=== PATIENT | female | born 1990 | race African-American/Black ===

== ENCOUNTER 2017-07-29 23:53 | Emergency (ER) | payer SELFPAY ==
[~2017-07-29] VITALS: Ht 160 cm; Wt 74.0 kg
[2017-07-29 23:59] VITALS: Ht 160 cm; Wt 74.0 kg
== END 2017-07-30 02:09 | disposition left against medical advice (07) ==
LOC: FTE 23:53
DX: Z53.21 Procedure and treatment not carried out due to patient leaving prior to being seen by health care provider (principal)